=== PATIENT | male | born 1990 | race Hispanic/Latino ===

== ENCOUNTER 2021-10-27 14:15 | Emergency (ER) | payer BC, SELFPAY ==
[2021-10-27] MEDS ORDERED: ONDANSETRON 4 MG/2 ML VIAL ONE (14:55)
[2021-10-27] MEDS ORDERED: NA CHLORIDE 0.9% 1,000 ML ONE (14:55)
[2021-10-27] MEDS ORDERED: MORPHINE 4 MG/ML SYR ONE (14:55)
[2021-10-27 15:06] LABS: Absolute Lymphocytes (CBC) 2.9 K/uL (0.7-4.9); Lymphocytes % 33.3 % (15.3-44.8); MCV 93.3 fL (80-100); MPV 7.6 fL (7.6-11.3); RBC Red Blood Cell Count 5.04 M/uL (4.33-5.43)
--- NOTE | 2021-10-27 15:18 | RAD REPORT ---
EXAM DESCRIPTION: CTStone Protocol - 10/27/2021 3:03 pm CLINICAL HISTORY: Flank pain, kidney stone suspected COMPARISON: No comparisons TECHNIQUE: CT of the abdomen and pelvis was performed. All CT scans are performed using dose optimization technique as appropriate and may include automated exposure control or mA/KV adjustment according to patient size. FINDINGS: Lower chest: Small hiatal hernia with thickened distal esophagus is may reflect esophagiti s. Liver: Hepatic steatosis. Biliary: No biliary ductal dilatation. Stomach: No significant focal abnormality. Duodenum: No significant focal abnormality. Pancreas: No significant abnormality. Spleen: No significant abnormality. Adrenal: No suspicious lesions. Kidney/ureter: Mild left-sided hydronephrosis secondary to a 3 mm stone at the left UVJ. 5 millimeter s stone in the lower pole left kidney. Retroperitoneum: No retroperitoneal adenopathy. Vascular: No aneurysm. Bowel: No significant focal abnormality. Normal appendix. Peritoneum: No ascites or free air. Bladder: Grossly unremarkable. Reproductive: No adnexal masses. Bones: No acute fracture. Other: n/a IMPRESSION: Mild left-sided hydroureteronephrosis secondary to a 3 mm stone at the left UVJ.
[2021-10-27] MEDS ORDERED: HYDROMORPHONE HCL 1 MG/ML INJ ONE ×2 (15:21→17:16)
[2021-10-27 15:28] LABS: Albumin 4.3 g/dL (3.4-5.0); Bilirubin Total 0.5 mg/dL (0.2-1.0); Potassium 3.7 mmol/L (3.5-5.1); Protein, Total 8.5 g/dL (6.4-8.2)
[2021-10-27] MEDS ORDERED: TAMSULOSIN 0.4 MG SR CAP ONE (15:43)
[2021-10-27] MEDS ORDERED: KETOROLAC 30 MG/ML INJ ONE (15:43)
[2021-10-27] MEDS ORDERED: MAGNESIUM SULFATE 1 gm IVPB 1 GM/100 ML BAG IV ONE (15:43)
[2021-10-27] MEDS ORDERED: CEFTRIAXONE 1000 MG/VIAL ONE (15:43)
[2021-10-27 16:52] LABS: Urine Blood 3+ (Negative); Urine Glucose Negative (Negative); Urine Protein 1+ (Negative); Urine Specific Gravity >=1.030 (1.005-1.030); Urine pH 5.5 (5.0-7.0)
[2021-10-27 17:28] LABS: Urine Bacteria <20 /HPF (<20); Urine Mucus 2+ /HPF (None Seen)
--- NOTE | 2021-10-27 17:37 | ER ---
Nurse's Notes [facility] Name: Cristobal Haddad Age: 31 yrs Sex: Male : 1990 Arrival Date: 10/27/2021 Time: 14:16 Bed 19 [facility] MD: Diagnosis: Calculus of ureter-left Presentation: 10/27 14:31 Chief complaint: Vomiting, diarrhea, and diffuse abdominal pain since last night, left hb low back and flank pain since this morning. Diaphoretic and grimacing in triage. Coronavirus screen: At this time, the client does not indicate any symptoms associated with coronavirus-19. Ebola Screen: No symptoms or risks identified at this time. Initial Sepsis Screen: Does the patient meet any 2 criteria? No. Patient's initial sepsis screen is negative. Does the patient have a suspected source of infection? No. Patient's initial sepsis screen is negative. Risk Assessment: Do you want to hurt yourself or someone else? Patient reports no desire to harm self or others. Onset of symptoms was October 26, 2021. 14:31 Method Of Arrival: Ambulatory 14:31 Acuity: MEKHI 3 hb Triage Assessment: 14:40 General: Appears distressed, Behavior is anxious, restless. Pain: Complains of pain in jg9 right low back, posterior aspect of right lateral abdomen and left lower quadrant Pain currently is 10 out of 10 on a pain scale. GI: Reports diarrhea, nausea, vomiting. Historical: - Allergies: 14:33 No Known Allergies; hb - Home Meds: 14:33 None [Active]; hb - PMHx: 14:33 kidney stones; hb - PSHx: 14:33 None; hb - Immunization history:: Adult Immunizations up to date, Client reports having NOT received the Covid vaccine. - Social history:: Smoking status: Patient denies any tobacco usage or history of. Screenin:04 Abuse screen: Denies threats or abuse. Denies injuries from another. Nutritional jg9 screening: No deficits noted. Tuberculosis screening: No symptoms or risk factors identified. Fall Risk None identified. Assessment: 15:04 GI: Abdomen is flat. jg9 15:50 Reassessment: Patient and/or family updated on plan of care and expected duration. Pain jg9 level reassessed. Patient is alert, oriented x 3, equal unlabored respirations, skin warm/dry/pink. Patient states symptoms have improved. patient resting quietly at this time-no longer hear him moaning/groaning or cursing. Vital Signs: 14:31 BP 157 / 108; Pulse 65; Resp 18; Temp 98.2(O); Pulse Ox 100% ; Weight 104.33 kg; Height hb 5 ft. 8 in. (172.72 cm); Pain 10/10; 14:45 BP 156 / 104; Pulse 76; Resp 20 S; Pulse Ox 100% on R/A; Pain 10/10; jg9 15:30 BP 140 / 106; Pulse 73; Resp 16 S; Pulse Ox 99% on R/A; Pain 10/10; jg9 16:00 BP 133 / 82; Pulse 62; Resp 18 S; Pulse Ox 96% ; Pain 8/10; jg9 16:30 BP 112 / 89; Pulse 68; Resp 12 S; Pulse Ox 98% ; Pain 3/10; jg9 14:31 Body Mass Index 34.97 (104.33 kg, 172.72 cm) hb ED Course: 14:16 Patient arrived in ED. as 14:16 Darryl Galarza DO is Attending Physician. ms3 14:25 Marbin Gonzalez PA is PHCP. cp 14:32 Triage completed. hb 14:33 Arm band placed on. hb 14:40 Patient has correct armband on for positive identification. Bed in low position. Call jg9 light in reach. Side rails up X 1. 14:46 Yee Mendoza, RN is Primary Nurse. jg9 14:47 Inserted saline lock: 22 gauge in right antecubital area, using aseptic technique. jg9 Blood collected. 15:04 CT Stone Protocol In Process Unspecified. EDMS 15:49 Resting quietly. Pt visited by significant other. jg9 17:35 Manan Cade MD is Referral Physician. cp 17:54 No provider procedures requiring assistance completed. jg9 Administered Medications: 14:55 Drug: NS 0.9% 1000 ml Route: IV; Rate: 1 bolus; Site: right antecubital; jg9 16:56 Follow up: IV Status: Completed infusion; IV Intake: 1000ml jg9 14:55 Drug: Zofran (Ondansetron) 4 mg Route: IVP; Site: right antecubital; jg9 15:17 Follow up: Response: No adverse reaction jg9 14:55 Drug: morphine 4 mg Route: IVP; Infused Over: 4 mins; Site: right antecubital; jg9 15:10 Follow up: Response: No adverse reaction; Pain is unchanged, physician notified jg9 15:17 Drug: Dilaudid (HYDROmorphone) 1 mg Route: IVP; Site: right forearm; jg9 15:31 Follow up: Response: No adverse reaction; Pain is decreased jg9 15:40 Drug: Rocephin (cefTRIAXone) 1 grams Route: IV; Rate: calculated rate; Site: right 9 antecubital; 16:57 Follow up: IV Status: Completed infusion; IV Intake: 50ml jg9 15:42 Drug: Magnesium Sulfate 1 grams Route: IVPB; Infused Over: 1 hrs; Site: right 9 antecubital; 16:56 Follow up: IV Status: Completed infusion; IV Intake: 100ml jg9 15:44 Drug: Ketorolac 15 mg Route: IVP; Site: right antecubital; jg9 16:56 Follow up: Response: No adverse reaction; Marked relief of symptoms jg9 15:45 Drug: Flomax (tamsulosin) 0.4 mg Route: PO; jg9 16:57 Follow up: Response: No adverse reaction; Marked relief of symptoms jg9 17:11 Drug: Dilaudid (HYDROmorphone) 1 mg Route: IVP; Site: right antecubital; ld1 Intake: 16:56 IV: 1000ml; Total: 1000ml. jg9 16:56 IV: 100ml; Total: 1100ml. jg9 16:57 IV: 50ml; Total: 1150ml. jg9 Outcome: 17:36 Discharge ordered by . july 17:54 Patient left the ED. hb 17:54 Discharged to home ambulatory. jg9 17:54 Condition: stable 17:54 Discharge instructions given to patient, Instructed on discharge instructions, follow up and referral plans. Demonstrated understanding of instructions, follow-up care, Prescriptions given X 3. Signatures: Dispatcher [employer] Suzanne Johnson Corey, PA PA cp Baxter, Heather, RN RN hb Darryl Galarza, DO ms3 Uyen Lynch RN RN ld1 Yee Mendoza RN RN jg9 Corrections: (The following items were deleted from the chart) 14:33 14:33 PMHx: None; hb hb 17:31 14:31 Chief complaint: Vomiting and diarrhea and diffuse abdominal pain since last hb night, left low back and flank pain since this morning. Diaphoretic and grimacing in traigae. hb
--- NOTE | 2021-10-27 17:37 | EDPHYS ---
Physician Documentation [facility] Name: Cristobal Haddad Age: 31 yrs Sex: Male : 1990 Arrival Date: 10/27/2021 Time: 14:16 Bed 19 Private MD: ED Physician Darryl Galarza HPI: 10/27 14:45 This 31 yrs old Male presents to ER via Ambulatory with complaints of cp Vomiting, Diarrhea, Left Flank Pain. 14:45 The patient presents to the emergency department with vomiting, that is intermittent, cp diarrhea, that is intermittent. Onset: The symptoms/episode began/occurred this morning. Possible causes: bad food exposure. Associated signs and symptoms: Pertinent positives: left flank pain. Historical: - Allergies: 14:33 No Known Allergies; hb - Home Meds: 14:33 None [Active]; hb - PMHx: 14:33 kidney stones; hb - PSHx: 14:33 None; hb - Immunization history:: Adult Immunizations up to date, Client reports having NOT received the Covid vaccine. - Social history:: Smoking status: Patient denies any tobacco usage or history of. ROS: 14:50 Constitutional: Negative for body aches, chills, fever, poor PO intake. cp 14:50 Eyes: Negative for injury, pain, redness, and discharge. cp 14:50 Respiratory: Negative for cough, shortness of breath, wheezing. 14:50 Abdomen/GI: Positive for nausea and vomiting, diarrhea, Negative for constipation. 14:50 Back: Positive for flank pain, on the left. 14:50 ENT: Negative for drainage from ear(s), ear pain, sore throat, difficulty swallowing, cp difficulty handling secretions. 14:50 Cardiovascular: Negative for chest pain, palpitations. 14:50 : Negative for urinary symptoms. 14:50 Neuro: Negative for altered mental status, headache, weakness. 14:50 All other systems are negative. cp Exam: 14:55 Constitutional: The patient appears in no acute distress, alert, awake, non-toxic, well cp developed, well nourished, in obvious pain, uncomfortable. 14:55 Head/Face: Normocephalic, atraumatic. cp 14:55 Eyes: Periorbital structures: appear normal, Conjunctiva: normal, no exudate, no injection, Sclera: no appreciated abnormality, Lids and lashes: appear normal, bilaterally. 14:55 ENT: External ear(s): are unremarkable, Nose: is normal, Mouth: Lips: moist, Oral mucosa: pink and intact, moist, Posterior pharynx: Airway: no evidence of obstruction, patent. 14:55 Neck: ROM/movement: is normal, is supple, without pain, no range of motions limitations. 14:55 Chest/axilla: Inspection: normal, Palpation: is normal, no crepitus, no tenderness. 14:55 Cardiovascular: Rate: normal, Rhythm: regular. 14:55 Respiratory: the patient does not display signs of respiratory distress, Respirations: normal, no use of accessory muscles, no retractions, labored breathing, is not present, Breath sounds: are clear throughout, no decreased breath sounds, no stridor, no wheezing. 14:55 Abdomen/GI: Inspection: abdomen appears normal, Bowel sounds: active, all quadrants, Palpation: soft, in all quadrants, severe abdominal tenderness, in the anterior aspect of left lateral abdomen, posterior aspect of left lateral abdomen and left upper quadrant, involuntary guarding, is not appreciated. 14:55 Skin: no rash present. 14:55 Neuro: Orientation: to person, place \T\ time. Mentation: is normal, Motor: moves all fours, strength is normal, Sensation: is normal. Vital Signs: 14:31 BP 157 / 108; Pulse 65; Resp 18; Temp 98.2(O); Pulse Ox 100% ; Weight 104.33 kg; Height hb 5 ft. 8 in. (172.72 cm); Pain 10/10; 14:45 BP 156 / 104; Pulse 76; Resp 20 S; Pulse Ox 100% on R/A; Pain 10/10; jg9 15:30 BP 140 / 106; Pulse 73; Resp 16 S; Pulse Ox 99% on R/A; Pain 10/10; jg9 16:00 BP 133 / 82; Pulse 62; Resp 18 S; Pulse Ox 96% ; Pain 8/10; jg9 16:30 BP 112 / 89; Pulse 68; Resp 12 S; Pulse Ox 98% ; Pain 3/10; jg9 14:31 Body Mass Index 34.97 (104.33 kg, 172.72 cm) hb MDM: 14:42 Patient medically screened. 17:35 Data reviewed: vital signs, nurses notes, lab test result(s), radiologic studies, CT cp scan. 17:35 Differential diagnosis: gastritis, diverticulitis, viral gastroenteritis, cp gastroenteritis, pyelonephritis, UTI, kidney stone. Counseling: I had a detailed discussion with the patient and/or guardian regarding: the historical points, exam findings, and any diagnostic results supporting the discharge/admit diagnosis, lab results, radiology results, to return to the emergency department if symptoms worsen or persist or if there are any questions or concerns that arise at home. Response to treatment: the patient's symptoms have markedly improved after treatment, VSS. Pain markedly improved. Patient tolerating po fluids. Will discharge to home for continued monitoring with precautions to return pain not controlled with meds, vomiting, fever. 10/27 14:45 Order name: CBC with Diff; Complete Time: 15:23 10/27 15:23 Interpretation: Reviewed. 10/27 14:45 Order name: CMP; Complete Time: 15:29 10/27 15:30 Interpretation: Normal except: AST 121; ALT 220; CA 10.3; TP 8.5; GLOB 4.2; A/G 1.0. 10/27 14:45 Order name: Lipase; Complete Time: 15:29 10/27 14:45 Order name: Urine Microscopic Only; Complete Time: 17:35 10/27 14:45 Order name: CT Stone Protocol; Complete Time: 15:23 10/27 15:30 Interpretation: Report reviewed. 10/27 16:53 Order name: Urine Dipstick-Ancillary; Complete Time: 17:02 EDWV 10/27 17:02 Interpretation: Normal except: UKET 1+; UBLD 3+; UPROT 1+. 10/27 14:45 Order name: IV Saline Lock; Complete Time: 14:47 10/27 14:45 Order name: Labs collected and sent; Complete Time: 14:47 10/27 14:45 Order name: Urine Dipstick-Ancillary (obtain specimen); Complete Time: 16:56 10/27 15:53 Order name: PO challenge; Complete Time: 16:56 cp Administered Medications: 14:55 Drug: NS 0.9% 1000 ml Route: IV; Rate: 1 bolus; Site: right antecubital; jg9 16:56 Follow up: IV Status: Completed infusion; IV Intake: 1000ml jg9 14:55 Drug: Zofran (Ondansetron) 4 mg Route: IVP; Site: right antecubital; jg9 15:17 Follow up: Response: No adverse reaction jg9 14:55 Drug: morphine 4 mg Route: IVP; Infused Over: 4 mins; Site: right antecubital; jg9 15:10 Follow up: Response: No adverse reaction; Pain is unchanged, physician notified jg9 15:17 Drug: Dilaudid (HYDROmorphone) 1 mg Route: IVP; Site: right forearm; jg9 15:31 Follow up: Response: No adverse reaction; Pain is decreased jg9 15:40 Drug: Rocephin (cefTRIAXone) 1 grams Route: IV; Rate: calculated rate; Site: right [facility] [place] antecubital; 16:57 Follow up: IV Status: Completed infusion; IV Intake: 50ml jg9 15:42 Drug: Magnesium Sulfate 1 grams Route: IVPB; Infused Over: 1 hrs; Site: right [facility] [place] antecubital; 16:56 Follow up: IV Status: Completed infusion; IV Intake: 100ml jg9 15:44 Drug: Ketorolac 15 mg Route: IVP; Site: right antecubital; jg9 16:56 Follow up: Response: No adverse reaction; Marked relief of symptoms jg9 15:45 Drug: Flomax (tamsulosin) 0.4 mg Route: PO; jg9 16:57 Follow up: Response: No adverse reaction; Marked relief of symptoms jg9 17:11 Drug: Dilaudid (HYDROmorphone) 1 mg Route: IVP; Site: right antecubital; ld1 Disposition: 22:45 Co-signature as Attending Physician, Darryl MARIE was immediately available on-site ms3 in the Emergency Department for consultation in the care of the patient.. Disposition Summary: 10/27/21 17:36 Discharge Ordered Location: Home cp Problem: new cp Symptoms: have improved cp Condition: Stable cp Diagnosis - Calculus of ureter - left cp Followup: cp - With: Manan Cade MD - When: 2 - 3 days - Reason: Worsening of condition Discharge Instructions: - Discharge Summary Sheet cp - Kidney Stones cp - Renal Colic cp Forms: - Medication Reconciliation Form cp - Thank You Letter cp - Antibiotic Education cp - Prescription Opioid Use cp - Work release form kj1 - Family Work Release kj1 Prescriptions: - Flomax 0.4 mg Oral capsule - take 1 capsule by ORAL route once daily As needed 1/2 hour following the same cp meal each day; 5 capsule; Refills: 0, Product Selection Permitted - Ultracet 37.5-325 mg Oral Tablet - take 1 tablet by ORAL route every 6 hours; 15 tablet; Refills: 0, Product cp Selection Permitted - Zofran 4 mg Oral Tablet - take 1 tablet by ORAL route every 12 hours As needed; 20 tablet; Refills: 0, cp Product Selection Permitted Signatures: Dispatcher [employer] EDMS Marbin Gonzalez PA PA cp Jammie Ortega, RN RN hb Darryl Galarza DO DO ms3 Uyen Lynch RN RN ld1 Yee Mendoza RN RN jg9 Corrections: (The following items were deleted from the chart) 14:33 14:33 PMHx: None; hb hb
[2021-10-27 18:03] VITALS: TEMP 98.2
[2021-10-27 18:09] VITALS: BP 112/89; O2SAT 98
== END 2021-10-27 17:54 | disposition home or self-care (01) ==
LOC: ER 14:15
DX: N20.1 Calculus of ureter (principal); R11.10 Vomiting, unspecified; R19.7 Diarrhea, unspecified; R10.9 Unspecified abdominal pain
CPT/HCPCS: 36415; 74176; 76377; 80053; 81003; 81015; 83690; 85025; J1170; J2405; J3475; J7030